=== PATIENT | female | born 1950 | race Caucasian/White ===

== ENCOUNTER 2016-11-12 22:38 | Emergency (ER) | payer OTHER ==
[~2016-11-12] VITALS: Ht 170.2 cm; Wt 101.4 kg
[2016-11-12 22:39] VITALS: BP 115/79
[2016-11-12 23:51] LABS: HEMOGLOBIN 12.1 g/dL (11.7-16.4)
[2016-11-13] LABS: BLOOD UREA NITROGEN 16 mg/dL (7-18)
[2016-11-13 00:13] LABS: PATH.CAST-FLAG NOT PRESENT; SPERM-FLAG NOT PRESENT; SRC-FLAG NOT PRESENT; XTAL-FLAG NOT PRESENT; YLC-FLAG NOT PRESENT
[2016-11-13] MEDS ORDERED: SODIUM CHLORIDE 0.9% 1,000ML IVBOLUS ONE (00:30)
== END 2016-11-13 01:51 | disposition home or self-care (01) ==
LOC: ED 23:59
DX: N39.0 Urinary tract infection, site not specified (principal); E11.9 Type 2 diabetes mellitus without complications; E78.5 Hyperlipidemia, unspecified; I10 Essential (primary) hypertension; F43.10 Post-traumatic stress disorder, unspecified
CPT/HCPCS: 36415; 80048; 81001; 82040; 83605; 85025; 87077; 87086; 87186; 93005; 96360; 99285; J7030

== ENCOUNTER 2016-12-23 14:20 | Inpatient (IN) | payer OTHER ==
[~2016-12-23] VITALS: Ht 170.2 cm; Wt 100.7 kg
[2016-12-23] MEDS ORDERED: DOXE100C PO (15:36)
[2016-12-23] MEDS ORDERED: MULT1CAP19 PO (15:36)
[2016-12-23] MEDS ORDERED: LEVO175T5 PO (15:36)
[2016-12-23] MEDS ORDERED: ATOR20TA PO (15:36)
[2016-12-23] MEDS ORDERED: ALPR0.25 PO (15:36)
[2016-12-23] MEDS ORDERED: ATEN25TA PO (15:36)
[2016-12-23] MEDS ORDERED: ASPI-515 PO (15:36)
[2016-12-23] MEDS ORDERED: GABA300C10 PO (15:36)
[2016-12-23] MEDS ORDERED: NAPR375T3 PO (15:39)
[2016-12-23] MEDS ORDERED: INSU100V8 SQ (15:39)
[2016-12-23] MEDS ORDERED: OMEP-110 PO (15:39)
[2016-12-23] MEDS ORDERED: META800T PO (15:39)
[2016-12-23] MEDS ORDERED: SODIUM CHLORIDE FLUSH 10ML SYR IVF ONE (16:00)
[2016-12-23] MEDS ORDERED: CEFTRIAXONE 1,000 MG in SODIUM CHLORIDE 0.9% 50 ML IVPB ONE (16:00)
[2016-12-23] MEDS ORDERED: SODIUM CHLORIDE 0.9% 1,000ML IVBOLUS ONE (16:00)
[2016-12-23 16:08] LABS: BLOOD UREA NITROGEN 9 mg/dL (7-18)
[2016-12-23 16:11] LABS: ASPARTATE AMINO TRANSFERASE 24 U/L (15-37)
[2016-12-23] MEDS ORDERED: ACETAMINOPHEN 325 MG TABLET PO PRN (19:00)
[2016-12-23] MEDS ORDERED: POLYETHYLENE GLYCOL 17 GM PACKET PO PRN (19:00)
[2016-12-23] MEDS ORDERED: ONDANSETRON 2MG/ML, 2ML IVPush PRN (19:00)
[2016-12-23] MEDS ORDERED: BISACODYL 10 MG SUPP PR PRN (19:00)
[2016-12-23 19:08] VITALS: BP 95/65
[2016-12-23] MEDS: DOXEPIN 100 MG CAPSULE PO SCH (21:00)
[2016-12-23] MEDS: SODIUM CHLORIDE 0.9% 1,000 ML IV SCH (21:09)
[2016-12-23] MEDS: HEPARIN 5,000 UNITS/ML, 1ML SQ SCH (21:09)
[2016-12-23] MEDS: INSULIN DETEMIR 100 UNITS/ML, PEN SQ-INSULIN SCH (21:10)
[2016-12-23] MEDS: ATORVASTATIN 20 MG TABLET PO SCH (21:10)
[2016-12-23] MEDS: ATENOLOL 25 MG TABLET PO SCH (21:11)
[2016-12-23] MEDS ORDERED: ALUMINUM/MAG/SIMETHICONE 30 ML UDC PO PRN (23:00)
[2016-12-24 02:00] VITALS: BP 112/79
[2016-12-24] MEDS: HEPARIN 5,000 UNITS/ML, 1ML SQ SCH ×3 (05:31→21:06)
[2016-12-24] MEDS: LEVOTHYROXINE 175 MCG TABLET PO SCH (05:31)
[2016-12-24 06:04] LABS: ASPARTATE AMINO TRANSFERASE 20 U/L (15-37); BLOOD UREA NITROGEN 13 mg/dL (7-18)
[2016-12-24 07:17] VITALS: BP 116/80
[2016-12-24] MEDS: SODIUM CHLORIDE 0.9% 1,000 ML IV SCH (08:22)
[2016-12-24] MEDS: ATENOLOL 25 MG TABLET PO SCH ×2 (08:25→20:47)
[2016-12-24] MEDS: MULTIVITAMIN 1 TABLET PO SCH (08:26)
[2016-12-24] MEDS: GABAPENTIN 300 MG CAPSULE PO SCH (08:26)
[2016-12-24] MEDS: ASPIRIN 81 MG TABLET EC PO SCH (08:26)
[2016-12-24] MEDS: SENNA/DOCUSATE TABLET PO SCH (08:31)
[2016-12-24 14:02] VITALS: BP 112/77
[2016-12-24] MEDS ORDERED: CEFTRIAXONE 1,000 MG in SODIUM CHLORIDE 0.9% 50 ML IV SCH (17:00)
[2016-12-24] MEDS: CEFTRIAXONE 1,000 MG in SODIUM CHLORIDE 0.9% 100 ML IV SCH (17:52)
[2016-12-24 19:11] VITALS: BP 104/71
[2016-12-24] MEDS: INSULIN DETEMIR 100 UNITS/ML, PEN SQ-INSULIN SCH (20:44)
[2016-12-24] MEDS: DOXEPIN 100 MG CAPSULE PO SCH (21:05)
[2016-12-24] MEDS: ATORVASTATIN 20 MG TABLET PO SCH (21:06)
[2016-12-25] MEDS: SODIUM CHLORIDE 0.9% 1,000 ML IV SCH ×3 (00:54→20:45)
[2016-12-25 01:42] VITALS: BP 117/80
[2016-12-25] MEDS: HEPARIN 5,000 UNITS/ML, 1ML SQ SCH ×3 (05:10→20:44)
[2016-12-25] MEDS: LEVOTHYROXINE 175 MCG TABLET PO SCH (05:11)
[2016-12-25 06:46] VITALS: BP 122/82
[2016-12-25] MEDS: MULTIVITAMIN 1 TABLET PO SCH (09:02)
[2016-12-25] MEDS: ATENOLOL 25 MG TABLET PO SCH ×2 (09:03→20:44)
[2016-12-25] MEDS: GABAPENTIN 300 MG CAPSULE PO SCH (09:03)
[2016-12-25] MEDS: ASPIRIN 81 MG TABLET EC PO SCH (09:03)
[2016-12-25] MEDS: SENNA/DOCUSATE TABLET PO SCH (10:04)
[2016-12-25 12:19] VITALS: BP 133/87
[2016-12-25] MEDS: CEFTRIAXONE 1,000 MG in SODIUM CHLORIDE 0.9% 100 ML IV SCH (18:24)
[2016-12-25 18:49] VITALS: BP 116/78
[2016-12-25] MEDS: ATORVASTATIN 20 MG TABLET PO SCH (20:41)
[2016-12-25] MEDS: PHENAZOPYRIDINE 100 MG TABLET PO PRN (20:41)
[2016-12-25] MEDS: DOXEPIN 100 MG CAPSULE PO SCH (20:42)
[2016-12-25] MEDS: INSULIN DETEMIR 100 UNITS/ML, PEN SQ-INSULIN SCH (20:45)
[2016-12-26 03:33] VITALS: BP 107/71
[2016-12-26] MEDS: HEPARIN 5,000 UNITS/ML, 1ML SQ SCH ×2 (06:27→13:00)
[2016-12-26] MEDS: PHENAZOPYRIDINE 100 MG TABLET PO PRN (06:30)
[2016-12-26] MEDS: LEVOTHYROXINE 175 MCG TABLET PO SCH (06:30)
[2016-12-26] MEDS: ATENOLOL 25 MG TABLET PO SCH (07:55)
[2016-12-26] MEDS: GABAPENTIN 300 MG CAPSULE PO SCH (07:55)
[2016-12-26] MEDS: MULTIVITAMIN 1 TABLET PO SCH (07:55)
[2016-12-26] MEDS: ASPIRIN 81 MG TABLET EC PO SCH (07:56)
[2016-12-26 08:30] VITALS: BP 109/74
[2016-12-26] MEDS ORDERED: SENNA/DOCUSATE TABLET PO SCH (09:00)
[2016-12-26] MEDS: SODIUM CHLORIDE 0.9% 1,000 ML IV SCH (11:12)
[2016-12-26 14:30] VITALS: BP 116/79
[2016-12-26] MEDS ORDERED: CIPR500T3 PO (15:19)
== END 2016-12-26 20:45 | disposition home or self-care (01) | DRG 689 ==
LOC: ED 16:01 → 3NE 17:18
PROVIDERS: ADMIT Hospitalist; ATTEND Family Medicine
DX: N39.0 Urinary tract infection, site not specified (principal); G93.41 Metabolic encephalopathy; R29.6 Repeated falls; E03.9 Hypothyroidism, unspecified; E11.42 Type 2 diabetes mellitus with diabetic polyneuropathy; E78.5 Hyperlipidemia, unspecified; F31.9 Bipolar disorder, unspecified; F43.10 Post-traumatic stress disorder, unspecified; I10 Essential (primary) hypertension; K21.9 Gastro-esophageal reflux disease without esophagitis; Z66 Do not resuscitate; W01.0XXA Fall on same level from slipping, tripping and stumbling without subsequent striking against object, initial encounter; Z79.4 Long term (current) use of insulin; Z82.5 Family history of asthma and other chronic lower respiratory diseases; Z90.49 Acquired absence of other specified parts of digestive tract; Z81.1 Family history of alcohol abuse and dependence; Z79.82 Long term (current) use of aspirin; Z79.899 Other long term (current) drug therapy; Z88.2 Allergy status to sulfonamides; Y93.89 Activity, other specified; Y92.89 Other specified places as the place of occurrence of the external cause
CPT/HCPCS: 36415; 71010; 80053; 81001; 82962; 83036; 83605; 84145; 85025; 87040; 87086; 93005; 96361; 96365; J0696; J1644; J1815; J7030

== ENCOUNTER 2017-02-03 17:34 | Emergency (ER) | payer OTHER ==
[~2017-02-03] VITALS: Ht 170.2 cm; Wt 99.8 kg
[~2017-02-03 17:34] MED LIST: ALPR0.25 PO; ASPI-515 PO; ATEN25TA PO; ATOR20TA PO; CIPR500T3 PO; DOXE100C PO; GABA300C10 PO; INSU100V8 SQ; LEVO175T5 PO; META800T PO; MULT1CAP19 PO; NAPR375T3 PO; OMEP-110 PO
[2017-02-03] MEDS ORDERED: SODIUM CHLORIDE FLUSH 10ML SYR IVF ONE (18:00)
[2017-02-03] MEDS ORDERED: ONDANSETRON 2MG/ML, 2ML IVPush ONE ×2 (18:00→19:30)
[2017-02-03 18:28] LABS: BLOOD UREA NITROGEN 9 mg/dL (7-18)
[2017-02-03 18:32] LABS: ASPARTATE AMINO TRANSFERASE 39 U/L (15-37)
[2017-02-03] MEDS: SODIUM CHLORIDE 0.9% 1,000ML IVBOLUS ONE ×2 (19:10→19:40)
[2017-02-03] MEDS ORDERED: ONDANSETRON 2MG/ML, 2ML ONE (19:27)
[2017-02-03] MEDS ORDERED: MORPHINE SULFATE 4 MG/ML, 1ML ONE (19:27)
[2017-02-03] MEDS ORDERED: KETOROLAC 30 MG/1 ML ONE (19:27)
[2017-02-03] MEDS ORDERED: MORPHINE SULFATE 4 MG/ML, 1ML IVPush PRN (19:30)
[2017-02-03] MEDS ORDERED: KETOROLAC 30 MG/1 ML IVPush ONE (19:30)
[2017-02-03 20:57] VITALS: BP 118/78
== END 2017-02-03 21:46 | disposition home or self-care (01) ==
LOC: ED 21:40
DX: M47.896 Other spondylosis, lumbar region (principal); R31.29 Other microscopic hematuria; I10 Essential (primary) hypertension; E11.9 Type 2 diabetes mellitus without complications; E78.5 Hyperlipidemia, unspecified; Z87.891 Personal history of nicotine dependence
CPT/HCPCS: 36415; 74176; 80053; 81001; 85025; 87086; 96361; 96374; 96375; 99285; J1885; J2405; J7030

== ENCOUNTER 2017-02-07 22:04 | Observation (INO) | payer OTHER ==
[~2017-02-07] VITALS: Ht 170.2 cm; Wt 96.1 kg
[2017-02-07] MEDS ORDERED: L.AC1CAP6 PO (22:24)
[2017-02-07] MEDS ORDERED: IRON15TA3 PO (22:25)
[2017-02-07] MEDS ORDERED: GINK120T3 PO (22:26)
[2017-02-07] MEDS ORDERED: TRAZ100T15 PO (22:26)
[2017-02-07] MEDS ORDERED: PALI9TAB PO (22:26)
[2017-02-07 23:49] LABS: IS PT STATUS REG ER OR PRE ER? YES
[2017-02-08] MEDS: INSULIN DETEMIR 100 UNITS/ML, PEN SQ-INSULIN SCH ×2 (01:00→20:27)
[2017-02-08] MEDS ORDERED: ONDANSETRON 2MG/ML, 2ML IVPush PRN ×2 (01:30→14:00)
[2017-02-08] MEDS: INSULIN ASPART 100 UNITS/ML, PEN SQ-INSULIN SCH ×5 (01:30→20:27)
[2017-02-08] MEDS ORDERED: DEXTROSE 4 GM TAB.CHEW PO PRN ×2 (01:30→14:00)
[2017-02-08] MEDS ORDERED: LABETALOL 5MG/ML, 20ML IVPush PRN (01:30)
[2017-02-08] MEDS ORDERED: GLUCAGON 1 MG IM PRN ×2 (01:30→14:00)
[2017-02-08] MEDS ORDERED: DEXTROSE 50%, 50ML SYRINGE IVPush PRN ×2 (01:30→14:00)
[2017-02-08] MEDS ORDERED: ACETAMINOPHEN 325 MG TABLET PO PRN (01:30)
[2017-02-08 02:04] LABS: IS PT STATUS REG ER OR PRE ER? YES
[2017-02-08 02:55] VITALS: BP 148/91
[2017-02-08] MEDS: HEPARIN 5,000 UNITS/ML, 1ML SQ SCH ×3 (03:21→20:27)
[2017-02-08 07:19] LABS: IS PT STATUS REG ER OR PRE ER? NO
[2017-02-08 07:26] VITALS: BP 115/79
[2017-02-08] MEDS ORDERED: SODIUM CHLORIDE FLUSH 10ML SYR IVF SCH (09:00)
[2017-02-08] MEDS: LEVOTHYROXINE 200 MCG TABLET PO SCH (09:07)
[2017-02-08] MEDS: OMEPRAZOLE 20 MG CAPSULE.DR PO SCH (09:07)
[2017-02-08] MEDS: ASPIRIN 81 MG TABLET EC PO SCH (09:07)
[2017-02-08] MEDS: ATENOLOL 25 MG TABLET PO SCH ×2 (09:08→20:26)
[2017-02-08] MEDS: NICOTINE 21 MG/24 HR PATCH.TD24 TD SCH (12:21)
[2017-02-08 13:38] VITALS: BP 119/73
[2017-02-08 18:58] VITALS: BP 128/81
[2017-02-08] MEDS: GABAPENTIN 300 MG CAPSULE PO SCH (20:26)
[2017-02-08] MEDS: SODIUM CHLORIDE FLUSH 10ML SYR IVF SCH (20:28)
[2017-02-08] MEDS ORDERED: ATORVASTATIN 20 MG TABLET PO SCH (21:00)
[2017-02-08] MEDS ORDERED: DOXEPIN 100 MG CAPSULE PO SCH (21:00)
[2017-02-09 00:39] VITALS: BP 147/91
[2017-02-09] MEDS: HEPARIN 5,000 UNITS/ML, 1ML SQ SCH ×2 (03:12→11:00)
[2017-02-09 05:50] LABS: IS PT STATUS REG ER OR PRE ER? NO
[2017-02-09 05:51] LABS: BLOOD UREA NITROGEN 8 mg/dL (7-18)
[2017-02-09 06:53] VITALS: BP 111/78
[2017-02-09] MEDS: INSULIN ASPART 100 UNITS/ML, PEN SQ-INSULIN SCH ×3 (07:00→16:00)
[2017-02-09] MEDS: NICOTINE 21 MG/24 HR PATCH.TD24 TD SCH (08:05)
[2017-02-09] MEDS: SODIUM CHLORIDE FLUSH 10ML SYR IVF SCH (08:05)
[2017-02-09] MEDS: LEVOTHYROXINE 200 MCG TABLET PO SCH (08:05)
[2017-02-09] MEDS: OMEPRAZOLE 20 MG CAPSULE.DR PO SCH (08:05)
[2017-02-09] MEDS: GABAPENTIN 300 MG CAPSULE PO SCH (08:05)
[2017-02-09] MEDS: ATENOLOL 25 MG TABLET PO SCH (08:05)
[2017-02-09] MEDS: ASPIRIN 81 MG TABLET EC PO SCH (08:05)
[2017-02-09 13:02] VITALS: BP 123/85
[2017-02-09] MEDS ORDERED: FUROSEMIDE 40 MG/4 ML ONE (13:26)
[2017-02-09] MEDS ORDERED: FUROSEMIDE 40 MG/4 ML IV ONE (13:30)
== END 2017-02-09 20:08 | disposition home or self-care (01) ==
LOC: ED 23:19 → EDIP 02-08 00:39 → INTOOBSV 02-08 00:39 → 5SO 02-08 02:54
PROVIDERS: ADMIT Internal Medicine; ATTEND Internal Medicine
DX: R55 Syncope and collapse (principal); E11.9 Type 2 diabetes mellitus without complications; E03.9 Hypothyroidism, unspecified; F43.10 Post-traumatic stress disorder, unspecified; E78.5 Hyperlipidemia, unspecified; F31.9 Bipolar disorder, unspecified; R94.31 Abnormal electrocardiogram [ECG] [EKG]; F17.210 Nicotine dependence, cigarettes, uncomplicated; F41.0 Panic disorder [episodic paroxysmal anxiety]; I07.1 Rheumatic tricuspid insufficiency; I11.0 Hypertensive heart disease with heart failure; I50.30 Unspecified diastolic (congestive) heart failure; J44.9 Chronic obstructive pulmonary disease, unspecified; R09.02 Hypoxemia; Z83.6 Family history of other diseases of the respiratory system
CPT/HCPCS: 36415; 71010; 80048; 80061; 82607; 82746; 82962; 83036; 83735; 84100; 84443; 84484; 85025; 93005; 93306; 93880; 96372; 96374; 99285; G0378; J1644; J1940; J1815